=== PATIENT | male | born 1995 | race Caucasian/White ===

== ENCOUNTER 2024-06-15 17:27 | Emergency (ER) | payer BC, SELFPAY ==
--- NOTE | ~2024-06-15 | XR_ITS ---
CHEST RADIOGRAPH, PA AND LATERAL CLINICAL HISTORY: cough, URI . COMPARISON: None available TECHNIQUE: PA and lateral views of the chest. FINDINGS The cardiomediastinal silhouette is unremarkable. The lungs are clear. Visualized osseous structures and soft tissues are unremarkable. IMPRESSION: No focal infiltrate or effusion. Reviewed, dictated and finalized at location A.
[2024-06-15 17:33] VITALS: BP 168/88; PULSE 103; RESP 18; TEMP 36.5; O2SAT 97
--- NOTE | 2024-06-15 17:41 | ED.URI ---
HPI - URI/Sore Throat General Chief Complaint: Upper Respiratory Infection <BRYN Rangel Last Filed: 06/15/24 19:08> Stated Complaint: URI sx <BRYN Rangel Last Filed: 06/15/24 19:08> Time Seen by Provider: 06/15/24 17:37 <BRYN Rangel Last Filed: 06/15/24 19:08> Focused HPI: Patient is a 28-year-old male who presents the ED with report of URI symptoms. Patient reports he has had a intermittently productive cough over the last 1 week. He also reports having sinus drainage, congestion, mild sore throat. States this morning he woke up with liberty ear fullness/decreased hearing. He went to an in [place] and was Rx'd abx. States he just wanted a second opinion on his ears. Denies fevers, SOB. GENERAL: Well appearing, morbidly obese with BMI of 45.9, non-toxic, in no acute distress. HEAD: Normocephalic, atraumatic. ENT: TMs are very mildly erythematous, did not appear to be bulging. No cerumen impaction, no swelling throughout ear canal. RESPIRATORY: Airway patent, respirations nonlabored. Clear to auscultation bilaterally, no rales, rhonchi, wheezing. No significant focal lung sounds. CARDIOVASCULAR: Regular rate and rhythm without murmurs, rubs, or gallops. MUSCULOSKELETAL: Moves all extremities. No gross deformities. SKIN: Warm, dry, normal color. NEURO: A&O X3. Speech clear. PSYCHIATRIC: Appropriate mood and affect. Normal interaction. Patient screened in triage and initial orders placed.? ?Additional care and disposition to be based upon?diagnostic testing and treatment. <BRYN Rangel Last Filed: 06/15/24 19:08> Source: patient <BRYN Rangel Last Filed: 06/15/24 19:08> Mode of arrival: ambulatory <BRYN Rangel Last Filed: 06/15/24 19:08> Limitations: no limitations <Patria Haider PA-C - Last Filed: 06/15/24 19:08> History of Present Illness HPI Narrative: I agree with the HPI as documented in the medical screening exam <Esau Palmer MD - Last Filed: 06/15/24 22:18> Related Data Allergies/Adverse Reactions: Allergies Allergy/AdvReac Type Severity Reaction Status Date / Time No Known Allergies Allergy Verified 06/15/24 20:02 <Patria Haider PA-C - Last Filed: 06/15/24 19:08> Review of Systems Review of Systems: All systems reviewed & are unremarkable except as noted in HPI and below <Esau Palmer MD - Last Filed: 06/15/24 22:18> Exam Narrative: I agree with the exam is documented in the medical leg screening exam with the following changes. On my evaluation, there is mild bulging of the right TM. <Esau Palmer MD - Last Filed: 06/15/24 22:18> Course Course Emergency Course: 20:33 - The patient's exam appears consistent with otitis media. Will discharge with amoxicillin and a short course of steroids. The patient tested negative for COVID, influenza and RSV. Will discharge with recommendation for primary care follow-up. I discussed the findings and recommendations with the patient. Discussed return and emergency precautions including signs/symptoms of distress neck infection and airway compromise. The patient voiced understanding and agreement with the plan. All questions answered to his satisfaction. <Esau Palmer MD - Last Filed: 06/15/24 22:18> Vital Signs Vital signs: Vital Signs Temperature 97.7 F 06/15/24 17:33 Pulse Rate 103 H 06/15/24 17:33 Respiratory Rate 18 06/15/24 17:33 Blood Pressure 168/88 H 06/15/24 17:33 Pulse Oximetry 97 06/15/24 17:33 Temperature 98.4 F 06/15/24 20:54 Pulse Rate 101 H 06/15/24 20:54 Respiratory Rate 20 06/15/24 20:54 Blood Pressure 140/85 06/15/24 20:54 Pulse Oximetry 96 06/15/24 20:54 <Patria Haider PA-C - Last Filed: 06/15/24 19:08> Vital Signs Temperature 97.7 F 06/15/24 17:33 Pulse Rate 103 H 06/15/24 1
[2024-06-15 18:39] LABS: Influenza A QL RT-PCR Negative (Negative); Influenza B QL RT-PCR Negative (Negative); RSV RNA, RT-PCR Negative (Negative); SARS-CoV-2 RNA PCR Negative (Negative)
[2024-06-15 20:54] VITALS: BP 140/85; PULSE 101; RESP 20; TEMP 36.9; O2SAT 96
[2024-06-15 21:21] LABS: Strep Group A RT-PCR NOT DETECTED (Negative)
== END 2024-06-15 20:59 | disposition home or self-care (01) ==
PROVIDERS: Physician Assistant; Emergency Provider Preventive Medicine Aerospace Medicine
DX: H66.001 Acute suppurative otitis media without spontaneous rupture of ear drum, right ear (principal); J06.9 Acute upper respiratory infection, unspecified; Z20.822 Contact with and (suspected) exposure to COVID-19; E66.01 Morbid (severe) obesity due to excess calories; Z68.42 Body mass index [BMI] 45.0-49.9, adult
CPT/HCPCS: 71046; 87637; 87651; 99283